=== PATIENT | female | born 1980 | race Two or more races ===

== ENCOUNTER 2025-05-13 06:10 | Emergency (ER) | payer OTHER ==
[~2025-05-13] VITALS: Ht 157.5 cm; Wt 61.2 kg
[2025-05-13] MEDS ORDERED: [UNRECOGNIZED DRUG - OTHER] (06:24)
[2025-05-13] MEDS ORDERED: 0.9 % SODIUM CHLORIDE 1,000 ML IV STA (08:19)
[2025-05-13] MEDS ORDERED: FAMOTIDINE/PF 20 MG/2 ML VIAL IV STA (08:20)
[2025-05-13] MEDS ORDERED: ONDANSETRON HCL 2 MG/ML VIAL IV STA (08:20)
[2025-05-13] MEDS ORDERED: METOCLOPRAMIDE HCL 5 MG/ML VIAL IV ONE (08:30)
[2025-05-13] MEDS ORDERED: ONDANSETRON HCL 2 MG/ML VIAL ONE (08:33)
[2025-05-13] MEDS ORDERED: METOCLOPRAMIDE HCL 5 MG/ML VIAL ONE (08:33)
[2025-05-13] MEDS ORDERED: FAMOTIDINE/PF 20 MG/2 ML VIAL ONE (08:34)
[2025-05-13 09:32] LABS: BASO % 0.3 % (0.1-1.2); EOS # 0.02 (0.04-0.54); EOS % 0.2 % (0.7-7.0); LYMPH # 1.03 (1.18-3.74); LYMPH % 8.8 % (19.3-53.1); MEAN PLATELET VOLUME 10.40 fl (9.4-12.4); MONO # 0.53 (0.24-0.82); MONO % 4.5 % (4.7-12.5); NEUT # 10.05 (1.56-6.13); NEUT % 85.8 % (34.0-71.1); RED CELL DISTRIBUTION WIDTH 12.7 % (11.6-14.4)
[2025-05-13 09:36] LABS: ERYTHROCYTE SEDIMENTATION RATE 8 mm/hr (0-20)
[2025-05-13 09:46] LABS: URINE APPEARANCE Cloudy; URINE BILIRRUBIN Negative (NEGATIVE); URINE BLOOD Negative; URINE COLOR Yellow; URINE GLUCOSE Negative (NEGATIVE); URINE KETONE Trace (NEGATIVE); URINE LEUKOCYTE Small; URINE NITRATE Negative; URINE PROTEIN Negative (NEGATIVE); URINE UROBILINOGEN 0.2 E.U./dl
[2025-05-13 09:50] LABS: URINE EPITHELIAL CELLS 149.9 uL (0.0-38.8); URINE RBC 6.8 uL (0.0-20.8); URINE WBC 37.9 uL (0.0-23.2)
[2025-05-13 10:03] LABS: URINE CAST 0.43 uL (0.0-1.40)
[2025-05-13 10:05] LABS: INR 1.0
[2025-05-13 10:17] LABS: ALT/SGPT 22.0 U/L (12-78); AST/SGOT 12.0 U/L (15-37); BILIRUBIN TOTAL 0.74 mg/dL (0.3-1.2); BILIRUBIN,CONJUGATED 0.17 mg/dL (0.0-0.2); BUN CREA RATIO 12.0 (7.0-25.0); CREATININE SERUM 0.81 mg/dL (0.55-1.02); GFR 76.12; GLUCOSE FASTING 107.0 mg/dL (65-100); OSMOLALITY SERUM 275.0 MOSM/KG (275-295)
[2025-05-13] MEDS ORDERED: MORPHINE SULFATE 2 MG/ML SYRINGE IV ONE (12:15)
[2025-05-13] MEDS ORDERED: DICY20TA PO (13:39)
[2025-05-13] MEDS ORDERED: GAS RELIEF125 MG PO (13:39)
[2025-05-13] MEDS ORDERED: PEPCID AC20 MG PO (13:39)
[2025-05-13] MEDS ORDERED: INTESTINEX680 M1 PO (13:39)
== END 2025-05-13 14:14 | disposition home or self-care (01) ==
LOC: ER 06:11
PROVIDERS: General Practice
DX: O26.899 Other specified pregnancy related conditions, unspecified trimester (principal); A08.8 Other specified intestinal infections; K52.9 Noninfective gastroenteritis and colitis, unspecified; R10.30 Lower abdominal pain, unspecified; N83.201 Unspecified ovarian cyst, right side; R11.0 Nausea; R10.9 Unspecified abdominal pain; Z88.2 Allergy status to sulfonamides; Z91.041 Radiographic dye allergy status
CPT/HCPCS: 36415; 74176; 96365; 96366; 99284; J2270; J2405; J3490 ×2; J7030